=== PATIENT | male | born 1965 | race Caucasian/White ===

== ENCOUNTER → 2016-12-27 | Outpatient (CLI) | payer BC ==
[~2016-12-27] MED LIST: AMOXICILLIN 8751 TAB PO; CIPRO500 MG PO; FLAGYL500 MG PO; LEVAQUIN 5500 MG/TA1 PO; NO HOME MEDICATIONS; PERCOCET 325 MG1 TA2 PO; PHENERGAN 25 TA25 MG PO; TYLENOL 325MG325 MG PO; TYLENOL PM EXTR1 TA1 PO
== END ==
LOC: COL.RAD 08:09
DX: J32.8 Other chronic sinusitis (principal); R51 Headache; H34.231 Retinal artery branch occlusion, right eye; R91.1 Solitary pulmonary nodule
CPT/HCPCS: A9585; Q9967

== ENCOUNTER → 2019-06-18 | Outpatient (CLI) | payer BC | LOC: COL.RAD 10:30 | DX: R91.1 Solitary pulmonary nodule (principal) | CPT/HCPCS: Q9967 ==